=== PATIENT | male | born 1970 | race Caucasian/White ===

== ENCOUNTER 2017-05-18 20:23 | Inpatient (IN) | payer OTHER ==
[~2017-05-18] VITALS: Ht 157.5 cm; Wt 80.0 kg
[2017-05-18 20:56] LABS: ADD MIUA? YES; BILIRUBIN SMALL; BLOOD MODERATE; COLOR AMBER ((YELLOW)); GLUCOSE (STRIP) NEGATIVE; KETONES NEGATIVE; LEUKOCYTES NEGATIVE; NITRITE NEGATIVE; PROTEIN (STRIP) 30; SPECIFIC GRAVITY 1.024 (1.000-1.030)
[2017-05-18 21:14] LABS: HEMATOCRIT 39.1 % (38.0-50.0); MCH 29.4 PG (29.0-34.0); MCHC 34.5 G/DL (30.0-36.0); MCV 85.2 FL (86-99); MEAN PLAT.VOLUME 10.1 uM^3 (9.0-12.4); PLATELET COUNT 204 K/uL (156-360); RBC DIS.WIDTH-SD 37.3 % (39-53); RED BLOOD COUNT 4.59 M/uL (4.00-5.50); WHITE BLOOD COUNT 21.7 K/uL (4.1-10.2)
[2017-05-18 21:22] LABS: BACTERIA 1+ /HPF; EPITHELIAL CELLS RARE /HPF; MUCUS 4+ /LPF; RED BLOOD CELLS 0-5 /HPF (0-5); UCUL ADDED? NO; WHITE BLOOD CELLS 0-5 /HPF (0-5)
[2017-05-18 21:23] LABS: CHLORIDE 96 mEq/L (99-109); POTASSIUM 3.2 mEq/L (3.7-5.4); SODIUM 131 mEq/L (136-147)
[2017-05-18 21:25] LABS: GLUCOSE 126 mg/dL (70-99)
[2017-05-18 21:27] LABS: ANION GAP 14 MEQ/L (2-14); TOTAL BILIRUBIN 2.6 mg/dL (0.0-1.0)
[2017-05-18 21:29] LABS: ALKALINE PHOSPHATASE 114 IU/L (3-129)
[2017-05-18 21:30] LABS: UREA NITROGEN (BUN) 9 mg/dL (9-23)
[2017-05-18 21:32] LABS: GFR ESTIMATE (CALCULATED) > 59 mL/min/
[2017-05-18 21:33] LABS: CREATINE KINASE 79 IU/L (1-294); LIPASE 22 U/L (1.0-51.0)
[2017-05-19 05:53] VITALS: BP 116/69
[2017-05-19 06:55] VITALS: BP 106/59
[2017-05-19 11:00] VITALS: BP 110/66
[2017-05-19 12:52] LABS: MCH 29.1 PG (29.0-34.0); MCHC 33.6 G/DL (30.0-36.0); MCV 86.5 FL (86-99); MEAN PLAT.VOLUME 10.1 uM^3 (9.0-12.4); PLATELET COUNT 154 K/uL (156-360); RBC DIS.WIDTH-CV 12.5 % (11.8-14.6); RBC DIS.WIDTH-SD 39.8 % (39-53); RED BLOOD COUNT 4.16 M/uL (4.00-5.50); WHITE BLOOD COUNT 16.1 K/uL (4.1-10.2)
[2017-05-19 13:28] LABS: ALKALINE PHOSPHATASE 101 IU/L (3-129); ANION GAP 6 MEQ/L (2-14); CHLORIDE 100 MEQ/L (99-109); GFR ESTIMATE (CALCULATED) > 59 mL/min/; GLUCOSE 160 mg/dL (70-99); SAMPLE HEMOLYSIS CHECK 0; SAMPLE ICTERIC CHECK 0; SAMPLE LIPEMIA CHECK 0; SODIUM 133 MEQ/L (136-147); TOTAL BILIRUBIN 3.2 MG/DL (0.0-1.0); UREA NITROGEN (BUN) 9 mg/dL (9-23)
[2017-05-19 13:32] LABS: POTASSIUM 3.9 MEQ/L (3.7-5.4)
[2017-05-19 16:24] VITALS: BP 137/68
[2017-05-19 20:18] VITALS: BP 118/72
[2017-05-19 22:45] LABS: INTERNAL CONTROL VALID? YES
[2017-05-20 00:25] VITALS: BP 113/70
[2017-05-20 06:27] LABS: HEMATOCRIT 31.9 % (38.0-50.0); MCHC 34.8 G/DL (30.0-36.0); MCV 86.2 FL (86-99); MEAN PLAT.VOLUME 10.8 uM^3 (9.0-12.4); PLATELET COUNT 136 K/uL (156-360); RBC DIS.WIDTH-CV 12.6 % (11.8-14.6); WHITE BLOOD COUNT 14.1 K/uL (4.1-10.2)
[2017-05-20 06:50] LABS: ALKALINE PHOSPHATASE 87 IU/L (3-129); ANION GAP 9 MEQ/L (2-14); CHLORIDE 102 MEQ/L (99-109); GFR ESTIMATE (CALCULATED) > 59 mL/min/; POTASSIUM 3.5 MEQ/L (3.7-5.4); SAMPLE HEMOLYSIS CHECK 0; SAMPLE ICTERIC CHECK 0; SAMPLE LIPEMIA CHECK 0; SODIUM 134 MEQ/L (136-147); UREA NITROGEN (BUN) 11 mg/dL (9-23)
[2017-05-20 06:51] LABS: GLUCOSE 95 mg/dL (70-99)
[2017-05-20 07:33] VITALS: BP 120/67
[2017-05-20 12:11] VITALS: BP 122/73
[2017-05-20 15:14] VITALS: BP 122/75
[2017-05-20 20:45] VITALS: BP 132/78
[2017-05-20 23:25] VITALS: BP 121/76
[2017-05-21] VITALS (7 sets, daily range): BP systolic 123–138; BP diastolic 61–84
[2017-05-21 04:27] LABS: BASOPHIL COUNT 0.1 K/uL (0-0.1); EOSINOPHIL (%) 0.3 % (0-5); HEMATOCRIT 33.4 % (38.0-50.0); IMMATURE GRANULOCYTE COUNT 0.1 K/uL; INSTRUMENT ABS NEUTROPHIL CT 11.1 K/uL; LYMPHOCYTE COUNT 1.3 K/uL (1.0-2.8); MCH 29.3 PG (29.0-34.0); MCHC 34.4 G/DL (30.0-36.0); MEAN PLAT.VOLUME 10.9 uM^3 (9.0-12.4); MONOCYTE (%) 7.1 % (3-12); NEUTROPHIL (%) 81.3 % (45-76); NEUTROPHIL COUNT 11.1 K/uL (1.8-6.4); RBC DIS.WIDTH-CV 12.6 % (11.8-14.6); RBC DIS.WIDTH-SD 38.9 % (39-53); RED BLOOD COUNT 3.93 M/uL (4.00-5.50); WHITE BLOOD COUNT 13.6 K/uL (4.1-10.2)
[2017-05-21 04:29] LABS: PLATELET COUNT 227 K/uL (156-360)
[2017-05-21 04:29] LABS: INTER. NORMALIZED RATIO 1.5; PROTHROMBIN TIME 16.2 SEC (10.2-12.9)
[2017-05-21 04:36] LABS: POTASSIUM 4.1 mEq/L (3.7-5.4); SODIUM 137 mEq/L (136-147)
[2017-05-21 04:38] LABS: CHLORIDE 107 mEq/L (99-109); GLUCOSE 90 mg/dL (70-99)
[2017-05-21 04:40] LABS: ANION GAP 8 MEQ/L (2-14)
[2017-05-21 04:42] LABS: ALKALINE PHOSPHATASE 103 IU/L (3-129); GFR ESTIMATE (CALCULATED) > 59 mL/min/
[2017-05-21 04:43] LABS: UREA NITROGEN (BUN) 12 mg/dL (9-23)
[2017-05-21 04:45] LABS: TOTAL BILIRUBIN 1.5 mg/dL (0.0-1.0)
[2017-05-22 04:56] VITALS: BP 128/74
[2017-05-22 06:17] LABS: EOSINOPHIL (%) 1.4 % (0-5); EOSINOPHIL COUNT 0.2 K/uL (0-0.3); HEMATOCRIT 33.5 % (38.0-50.0); IMMATURE GRANULOCYTE COUNT 0.1 K/uL; INSTRUMENT ABS NEUTROPHIL CT 8.4 K/uL; LYMPHOCYTE COUNT 1.7 K/uL (1.0-2.8); MCH 29.7 PG (29.0-34.0); MCHC 34.6 G/DL (30.0-36.0); MCV 85.7 FL (86-99); MEAN PLAT.VOLUME 10.5 uM^3 (9.0-12.4); MONOCYTE (%) 9.7 % (3-12); MONOCYTE COUNT 1.1 K/uL (0-0.8); NEUTROPHIL (%) 72.9 % (45-76); NEUTROPHIL COUNT 8.4 K/uL (1.8-6.4); PLATELET COUNT 244 K/uL (156-360); RBC DIS.WIDTH-CV 13.2 % (11.8-14.6); RBC DIS.WIDTH-SD 40.9 % (39-53); RED BLOOD COUNT 3.91 M/uL (4.00-5.50); WHITE BLOOD COUNT 11.6 K/uL (4.1-10.2)
[2017-05-22 06:37] LABS: ALKALINE PHOSPHATASE 89 IU/L (3-129); ANION GAP 9 MEQ/L (2-14); CHLORIDE 107 MEQ/L (99-109); GFR ESTIMATE (CALCULATED) > 59 mL/min/; GLUCOSE 91 mg/dL (70-99); POTASSIUM 4.2 MEQ/L (3.7-5.4); SAMPLE HEMOLYSIS CHECK 0; SAMPLE ICTERIC CHECK 0; SAMPLE LIPEMIA CHECK 0; SODIUM 138 MEQ/L (136-147); TOTAL BILIRUBIN 0.9 MG/DL (0.0-1.0); UREA NITROGEN (BUN) 10 mg/dL (9-23)
[2017-05-22 08:29] VITALS: BP 139/87
[2017-05-22 11:59] VITALS: BP 123/81
[2017-05-22 15:57] VITALS: BP 135/78
[2017-05-22 20:26] VITALS: BP 129/67
[2017-05-22 23:13] VITALS: BP 132/73
[2017-05-23 08:23] VITALS: BP 118/78
[2017-05-23] MEDS ORDERED: PROBIOTIC1 EAC1 PO (10:01)
[2017-05-23] MEDS ORDERED: AUGMENTIN875 MG PO (10:01)
== END 2017-05-23 13:48 | disposition home or self-care (01) | DRG 871 ==
LOC: EME 20:23 → EDOF 05-19 03:36 → 5EAST 05-19 03:36 → ENRESERV 05-19 03:39 → 5EAST 05-19 05:15 → ENPENDDIS 05-23 → 5EAST 05-23 13:48
PROVIDERS: Hospitalist; Internal Medicine; Physician Assistant
DX: A40.9 Streptococcal sepsis, unspecified (principal); K75.0 Abscess of liver; E87.6 Hypokalemia; E87.1 Hypo-osmolality and hyponatremia; R74.0 Nonspecific elevation of levels of transaminase and lactic acid dehydrogenase [LDH]; D69.6 Thrombocytopenia, unspecified; K52.9 Noninfective gastroenteritis and colitis, unspecified; E86.0 Dehydration; Z66 Do not resuscitate
CPT/HCPCS: 49405; 71020; 74177; 74183; 76705; 80053; 80202; 81003; 82550; 82948; 83605; 83630; 83690; 85025; 85027; 85610; 87040; 87070; 87075; 87076; 87177; 87205; 87506; 87801; 93005; 99281; 99284; C1769; J0295; J0744; J1650; J2765; J3010; J3370; J3480; J7030; J7050; S0030

== ENCOUNTER → 2017-06-04 | Outpatient (CLI) | payer OTHER ==
[~2017-06-04] MED LIST: AUGMENTIN875 MG PO; PROBIOTIC1 EAC1 PO
== END | disposition home or self-care (01) ==
LOC: RAD 12:33 → EDSTATUS 13:00 → RAD 13:00
DX: K75.0 Abscess of liver (principal)
CPT/HCPCS: 74176